=== PATIENT | male | born 1950 | race Caucasian/White ===

== ENCOUNTER 2016-12-25 12:58 | Inpatient (IN) | payer OTHER, MEDICARE ==
[2016-12-25] MEDS ORDERED: Sodium Chloride 0.9% 10 ML Syringe FLUSH PRN (13:05)
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
[2016-12-25] MEDS ORDERED: Diphtheria,Pertussis(Acell),Tetanus Vaccine 0.5 ML SDV IM ONE (13:14)
[2016-12-25] MEDS ORDERED: ceFAZolin 2 GM in Premix Bag 1 BAG IV ONE (13:15)
[2016-12-25] MEDS ORDERED: HYDROmorphone 0.5 MG/0.5 ML Syringe IVPUSH ONE ×2 (13:24→21:22)
[2016-12-25] MEDS ORDERED: Iodine/Sodium Iodide 2% Tincture 30 ML Bottle ONE (13:56)
[2016-12-25] MEDS ORDERED: Ondansetron 4 MG/2 ML SDV ONE ×2 (14:14→16:16)
[2016-12-25] MEDS ORDERED: Propofol 200 MG/20 ML SDV ONE ×4 (14:14→17:01)
[2016-12-25] MEDS ORDERED: Rocuronium 50 MG/5 ML Vial ONE (14:14)
[2016-12-25] MEDS ORDERED: fentaNYL 250 MCG/5 ML SDV ONE (14:15)
[2016-12-25] MEDS ORDERED: Midazolam 1 MG/ML 2 ML SDV ONE ×2 (14:15→15:45)
[2016-12-25] MEDS ORDERED: ceFAZolin 1 GM Vial ONE (14:15)
[2016-12-25] MEDS ORDERED: Bupivacaine 0.25% 30 ML SDV ONE (14:16)
--- NOTE | 2016-12-25 14:17 | CT ---
Head CT Technique: Multiple axial sections through the brain were obtained. Intravenous contrast was not utilized. Findings: Small subdural hematoma is seen along the interhemispheric falx with thickness of about 2.5 mm. Small amount of subarachnoid blood is seen within an interhemispheric sulcus within the frontal region. No other findings of intracranial hemorrhage are seen. Old lacunar infarct is noted within the left basal ganglia. Minimal diminished density is noted within the periventricular white matter compatible with small vessel ischemic demyelination change. No other abnormal parenchymal densities are seen. No midline shift or mass effect is seen. Visualized sinuses are clear. No acute calvarial abnormality is appreciated. Impression: 1. Minimal subdural hematoma along the interhemispheric falx. Minimal amount of subarachnoid blood is seen within a sulcus along the medial frontal lobe on the right side. 2. Mild senescent change is seen. Diagnostic code #5
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
[2016-12-25] MEDS ORDERED: HYDROmorphone 0.5 MG/0.5 ML Syringe IVPUSH PRN ×2 (14:37→16:18)
[2016-12-25] MEDS ORDERED: Acetaminophen/oxyCODONE 325-5 MG Tab PO PRN (14:37)
[2016-12-25] MEDS ORDERED: Ondansetron 4 MG/2 ML SDV IVPUSH PRN ×2 (14:37→16:18)
[2016-12-25] MEDS ORDERED: Ketorolac 15 MG/ML SDV IVPUSH PRN (14:37)
[2016-12-25] MEDS ORDERED: Morphine 15 MG Tab.ER PO SCH (14:45)
[2016-12-25] MEDS ORDERED: Lidocaine 1% with EPINEPHrine 1:100,000 20 ML MDV ONE ×2 (14:53→15:46)
[2016-12-25] MEDS ORDERED: Bupivacaine 0.25%/EPINEPHrine 1:200,000 30 ML SDV ONE (14:53)
[2016-12-25] MEDS: cefTRIAXone 1 GM in Sodium Chloride 0.9% 100 ML IV ONE ×2 (15:10→17:44)
--- NOTE | 2016-12-25 15:19 | CR ---
Right tibia and fibula: Two views of the right tibia and fibula were obtained. Comparison: No previous study. Soft tissue injury is seen distally. Knee prosthesis is seen which appears aligned. No acute fracture or other bony abnormality is seen. Impression: 1. Soft tissue injury distally. 2. No acute bony abnormality is identified on right tibia/fibula study. Diagnostic code #3
[2016-12-25] MEDS ORDERED: Lidocaine 1% 2 ML ONE ×3 (15:39)
[2016-12-25] MEDS ORDERED: Ketamine 500 mg/10 ML MDV ONE (15:51)
[2016-12-25] MEDS ORDERED: Scopolamine 1.5 MG Transdermal Patch TRDERM ONE (16:12)
[2016-12-25] MEDS ORDERED: ePHEDrine 50 MG/ML SDV IVPUSH PRN (16:18)
[2016-12-25] MEDS ORDERED: fentaNYL 100 MCG/2 ML SDV IVPUSH PRN (16:18)
[2016-12-25] MEDS ORDERED: ePHEDrine/Normal Saline 25 MG/5 ML Syringe ONE (16:28)
[2016-12-25] MEDS ORDERED: Phenylephrine/Normal Saline 100 MCG/ML 10 ML Syringe ONE (16:37)
[2016-12-25] MEDS ORDERED: Lactated Ringers 1,000 ML ONE (16:56)
--- NOTE | 2016-12-25 17:33 | PCM.POSTAN ---
POST ANESTHESIA ASSESSMENT - MENTAL STATUS Mental Status: Alert, Oriented (times three, and appropriate to questions.) - VITAL SIGNS Pulse Rate: 79 SaO2: 94 Resp Rate: 14 Blood Pressure: 116/73 Temperature: 36.1 C - RESPIRATORY Respiratory Status: respiratory rate WNL, Airway Patent, O2 Saturation Stable - CARDIOVASCULAR CV Status: Pulse Rate WNL, Blood Pressure Stable - GASTROINTESTINAL GI Status: No Symptoms - POST OP HYDRATION Hydration Status: Adequate & Stable
[2016-12-25] MEDS ORDERED: cefTRIAXone 1 GM AdvVial IV ONE (17:42)
[2016-12-25] MEDS ORDERED: Sodium Chloride 0.9% 100 ML ONE (17:43)
--- NOTE | 2016-12-25 17:54 | PCM48HPAN ---
Post Anesthesia Note - EVALUATION WITHIN 48HRS OF ANESTHETIC Vital Signs in Normal Range: Yes Patient Participated in Evaluation: Yes Respiratory Function Stable: Yes Airway Patent: Yes Cardiovascular Function Stable: Yes Hydration Status Stable: Yes Pain Control Satisfactory: Yes Nausea and Vomiting Control Satisfactory: Yes Mental Status Recovered: Yes
--- NOTE | 2016-12-25 19:55 | CR ---
Left knee: 3 views of the left knee were obtained. Comparison: No previous knee exam. Joint effusion is seen with possible fat fluid level. Calcifications are seen within the suprapatellar pouch presumably due to synovial calcification. Slight chondrocalcinosis is noted. Mild degenerative spurring of the anterior tibial spines is seen. Bony structures are osteopenic. Mild joint space narrowing is noted within the patellofemoral joint. Slight concavity of the lateral tibial plateau is seen and difficult to exclude a fracture. Impression: 1. Possible fat fluid level within the suprapatellar bursa. 2. Difficult to exclude lateral malleolar fracture. CT exam would be helpful to further evaluate. 3. Other degenerative findings as noted above. Diagnostic code #5
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
[2016-12-25] MEDS ORDERED: metFORMIN 500 MG Tab PO ONE (21:45)
[2016-12-25] MEDS: Cephalexin 500 MG Cap PO SCH ×2 (23:21→23:44)
[2016-12-26] MEDS: HYDROmorphone 0.5 MG/0.5 ML Syringe IVPUSH PRN ×2 (00:38→03:46)
[2016-12-26] MEDS: Cephalexin 500 MG Cap PO SCH ×4 (05:45→23:39)
[2016-12-26] MEDS: metFORMIN 500 MG Tab PO SCH ×2 (07:14→18:37)
--- NOTE | 2016-12-26 07:29 | OR ---
DATE OF OPERATION: 12/25/2016 SURGEON: Manoj Hanna MD PREOPERATIVE DIAGNOSIS: Extensive laceration, lateral aspect, right lower extremity, 39 cm in length. POSTOPERATIVE DIAGNOSIS: 1. Extensive laceration, lateral aspect, right lower extremity, 39 cm in length. 2. Extensive muscle laceration anterior perineal muscles along with exposed peroneal nerve of the right lower extremity. ANESTHESIA: Sedation. OPERATION PERFORMED: 1. Irrigation and debridement of extensive laceration, deep tissue and muscle injury, right lower extremity. 2. Repair and closure of laceration, 39 cm, right lower extremity. DESCRIPTION OF PROCEDURE: The patient was taken to the operating room in supine position and was placed under a good heavy sedation. After sedation, the operation proceeded with prepping and draping of the right lower extremity by standard technique for an open laceration. After prepping and draping with the iodine solution, the operation proceeded with thorough irrigation using the Pulsavac in the wound area and immediate note was a gouge type injury with deep tissue muscle damage and penetration in the midportion of the anterior compartment of the muscle region and then also on exposure, found the peroneal nerve to be exposed and free with all covering tissues exposing in the midportion of the laceration. The area of the muscle gouge was thoroughly irrigated with the hematoma and also the skin flap that was present. There was also degloving injury from lateral to medial with the skin being peeled back to the medial side of the calf area. With completion of the surgery, close to 6000 mL of irrigation was used through the surgery. All the area of dirty type tissue was removed. The hematomas that were present were all removed and once that was complete, the muscle injury was reapproximated loosely with 3-0 Vicryl. The peroneal nerve was present and superficial. There was no skin flap area that could cover the nerve itself and it was opted just to bring the skin over the top and the closure began with mattress sutures being spaced intermittently through the length of the laceration. In the central area, there was 1 laceration that was 6 cm in length that was repaired [id number] using 2-0 Prolene. The rest of the skin sutures were placed on the tissue areas to close or reapproximate the skin keeping it loose for drainage. Once the sutures were in place, the laceration repaired. A thorough irrigation was used all through the surgery. The final step was to go ahead and infiltrate wound itself with 1% lidocaine and epinephrine proximally and distally taking care not to go into the area where the skin was apparent and compromised from the compression injury that the patient had on his leg that caused the laceration. The area showed good circulation and the operation then proceeded with a very large David dressing being applied with increased padding over the skin area to keep pressure on the skin for reattachment to the deep fascial tissues. The Duke wraps were then applied after the leg was wrapped in the soft tissues and bandages and the patient was then awakened from his sedation. He tolerated the procedure well, left the operative room in stable condition, good circulation, had positive dorsiflexion of the foot and great toe. ESTIMATED BLOOD LOSS: MMODAL /[id number]
[2016-12-26] MEDS: Acetaminophen/oxyCODONE 325-5 MG Tab PO PRN ×3 (07:33→20:28)
[2016-12-26] MEDS: Lisinopril 20 MG Tab PO SCH (08:00)
[2016-12-26] MEDS: Allopurinol 300 MG Tab PO SCH (08:00)
[2016-12-26] MEDS: PIOGLITAZONE 15 MG PO SCH (08:01)
--- NOTE | 2016-12-26 09:51 | CT ---
Head CT Technique: Multiple axial sections through the brain were obtained. Intravenous contrast was not utilized. Comparison: Previous head CT exam of 12/25/16. Findings: Small subdural hematoma remains along the interhemispheric falx. Minimal subarachnoid hemorrhage within the medial right frontal region remains stable. Minimal subdural hematoma extends along the cerebellar tentorium which also remains stable. No parenchymal hemorrhage is seen. No midline shift or mass effect is seen. Ventricles along with basal cisterns and sulci over the convexities are stable. Minimal diminished density is again seen within the periventricular white matter which is stable. Impression: 1. Small subdural hematoma along the interhemispheric falx and along the cerebellar tentorium. This is stable from prior study. 2. Minimal subarachnoid hemorrhage within the medial right frontal lobe which also remains stable from prior exam. 3. Other portions of the noncontrast head CT study also remain stable. Diagnostic code #3
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
--- NOTE | 2016-12-26 13:48 | MR ---
MRI left knee Technique: Proton fat-suppressed axial; proton fat-suppressed, T1 fat-suppressed inversion recovery and T2 gradient echo coronal; T1, T2 gradient echo and proton fat-suppressed sagittal images were obtained of the left knee. Findings: Edema is identified within the lateral tibial plateau. This is felt compatible with mildly depressed tibial plateau fracture. Subcutaneous edema noted around the knee. Lateral collateral and medial collateral ligament is intact. Cartilage is fairly well-preserved within the knees. Increased signal noted within the mid and posterior horn of the medial meniscus compatible with fairly extensive tear and degeneration. Increased signal noted within the anterior horn of the lateral meniscus most likely degenerative. Anterior and posterior cruciate ligaments are intact. Quadriceps and patellar tendons are intact. Increased signal seen within the patellar tendon felt compatible with stress reaction. Impression: 1. Large joint effusion and popliteal cyst. 2. Bone marrow edema within the lateral tibial plateau felt compatible with mild acute fracture with mild depression of the lateral tibial plateau. 3. Probable tear within the mid and posterior horn of the medial meniscus. Degenerative signal felt to be present within the anterior horn of the lateral meniscus. Diagnostic code #3
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
[2016-12-26] MEDS ORDERED: Acetaminophen 325 MG Tab PO PRN (18:31)
[2016-12-26] MEDS: INSULIN GLARGINE SUBCUT SCH (20:29)
[2016-12-26] MEDS ORDERED: INSULIN GLARGINE SQ SCH (21:00)
[2016-12-27] MEDS: Acetaminophen/oxyCODONE 325-5 MG Tab PO PRN ×3 (04:12→18:43)
[2016-12-27] MEDS: metFORMIN 500 MG Tab PO SCH ×2 (06:33→18:12)
[2016-12-27] MEDS: Cephalexin 500 MG Cap PO SCH ×3 (06:33→18:12)
[2016-12-27] MEDS: PIOGLITAZONE 15 MG PO SCH (07:59)
[2016-12-27] MEDS: Lisinopril 20 MG Tab PO SCH (07:59)
[2016-12-27] MEDS: Allopurinol 300 MG Tab PO SCH (07:59)
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
[2016-12-27] MEDS ORDERED: Magnesium Hydroxide 400 MG/5 ML Susp 30 ML Cup PO ONE (17:59)
[2016-12-27] MEDS: INSULIN GLARGINE SUBCUT SCH (21:17)
[2016-12-28] MEDS: Cephalexin 500 MG Cap PO SCH ×2 (00:19→06:26)
[2016-12-28] MEDS: Acetaminophen/oxyCODONE 325-5 MG Tab PO PRN ×2 (00:19→06:26)
[2016-12-28] MEDS: metFORMIN 500 MG Tab PO SCH (06:26)
[2016-12-28] MEDS: Lisinopril 20 MG Tab PO SCH (08:06)
[2016-12-28] MEDS: Allopurinol 300 MG Tab PO SCH (08:06)
[2016-12-28 08:13] VITALS: BP 129/88
[2016-12-28] MEDS: PIOGLITAZONE 15 MG PO SCH (08:13)
--- NOTE | 2016-12-28 10:00 | PCM.PN ---
- General Info Date of Service: 12/28/16 Admission Dx/Problem (Free Text): acute trauma multiple contusions abrasions, subdural hematoma, left tibial plateau fx, major rt lower leg laceration,soft tissue injury Hospitalist service consulted for medical management of DM. He is doing well, Lt knee is in knee brace, rt lower leg is with dressing in place. No complaints or concerns this morning. Plans for DC to [facility] Functional Status: Reports: Pain Controlled, Tolerating Diet, Urinating. Denies : New Symptoms - Review of Systems General: Reports: Other (unable to bare weight ). Denies: Fever HEENT: Reports: No Symptoms Pulmonary: Reports: No Symptoms. Denies: Shortness of Breath, Cough Cardiovascular: Reports: No Symptoms. Denies: Chest Pain, Palpitations, Dyspnea on Exertion Gastrointestinal: Reports: No Symptoms Genitourinary: Reports: No Symptoms Musculoskeletal: Reports: Leg Pain Neurological: Reports: No Symptoms Psychiatric: Reports: No Symptoms - Patient Data Vitals - Most Recent: Last Vital Signs Temp 98.4 F 12/28/16 04:50 Pulse 69 12/28/16 04:50 Resp 14 12/28/16 04:50 BP 129/88 12/28/16 08:06 Pulse Ox 94 L 12/28/16 04:50 Weight - Most Recent: 330 lb 3.2 oz I&O - Last 24 Hours: Intake & Output 12/27/16 12/28/16 12/28/16 22:59 06:59 14:59 Intake Total 440 300 Output Total 1450 950 Balance -1010 -650 Lab Results Last 24 Hours: Laboratory Results - last 24 hr 12/27/16 12/28/16 Range/Units 17:32 06:25 POC Glucose 123 H 105 (80-115) mg/dL Med Orders - Current: Current Medications Acetaminophen (Tylenol) 650 mg PO Q4H PRN PRN Reason: Fever Last Admin: 12/26/16 18:36 Dose: 650 mg Allopurinol (Zyloprim) 300 mg PO DAILY ESTHELA Last Admin: 12/28/16 08:06 Dose: 300 mg Cephalexin (Keflex) 500 mg PO Q6HR [facility]HELA Last Admin: 12/28/16 06:26 Dose: 500 mg Hydromorphone HCl (Dilaudid) 0.5 mg IVPUSH Q2H PRN PRN Reason: Pain Last Admin: 12/26/16 03:46 Dose: 0.5 mg Lisinopril (Prinivil) 40 mg PO DAILY [facility] Last Admin: 12/28/16 08:06 Dose: 40 mg Metformin HCl (Glucophage) 1,000 mg PO BIDMEALS [facility] Last Admin: 12/28/16 06:26 Dose: 1,000 mg Ondansetron HCl (Zofran) 4 mg IVPUSH Q4H PRN PRN Reason: Nausea/Vomiting Oxycodone/Acetaminophen (Percocet 325-5 Mg) 1 tab PO Q6H PRN PRN Reason: Pain Last Admin: 12/28/16 06:26 Dose: 1 tab Pioglitazone 15 Mg 0 each PO DAILY [facility] Last Admin: 12/28/16 08:13 Dose: Not Given Basaglar (Insulin Glargine,Hum.Rec. Anlog 80 Unit)Own Med 0 each SUBCUT BEDTIME [facility] Last Admin: 12/27/16 21:17 Dose: 80 each Sodium Chloride (Saline Flush) 10 ml FLUSH ASDIRECTED PRN PRN Reason: Keep Vein Open Last Admin: 12/25/16 13:38 Dose: 10 ml Discontinued Medications Bupivacaine HCl (Marcaine 0.25%) Confirm Administered Dose 30 ml .ROUTE .STK- MED ONE Stop: 12/25/16 14:17 Bupivacaine HCl/Epinephrine Bitart (Marcaine 0.25%/Epinephrine 1:200,000) Confirm Administered Dose 60 ml .ROUTE .STK-MED ONE Stop: 12/25/16 14:54 Last Admin: 12/25/16 15:58 Dose: 60 ml Cefazolin Sodium (Ancef) Confirm Administered Dose 2 gm .ROUTE .STK-MED ONE Stop: 12/25/16 14:16 Ceftriaxone Sodium (Rocephin) Confirm Administered Dose 1 gm IV .STK-MED ONE Stop: 12/25/16 17:43 Last Admin: 12/25/16 22:31 Dose: Not Given Diphtheria/Tetanus/Acell Pertussis (Adacel) 0.5 ml IM .ONCE ONE Stop: 12/25/16 13:15 Last Admin: 12/25/16 13:39 Dose: 0.5 ml Ephedrine Sulfate (Ephedrine Sulfate) 5 mg IVPUSH ASDIRECTED PRN PRN Reason: Hypotension Ephedrine Sulfate (Ephedrine In Ns) Confirm Administered Dose 25 mg .ROUTE .STK- MED ONE Stop: 12/25/16 16:29 Fentanyl (Sublimaze) Confirm Administered Dose 250 mcg .ROUTE .STK-MED ONE Stop: 12/25/16 14:16 Fentanyl (Sublimaze) 50 mcg IVPUSH Q5M PRN PRN Reason: Pain Stop: 12/25/16 16:34 Hydromorphone HCl (Dilaudid) 0.5 mg IVPUSH ONETIME ONE Stop: 12/25/16 13:25 Last Admin: 12/25/16 13:35 Dose: 0.5 mg Hydromorphone HCl (Dilaudid) 0.5 mg IVPUSH Q2H PRN PRN Reason: Pain (severe 7-10) Last Admin: 12/25/16 21:26 Dose: 0.5 mg Hydromorphone HCl (Dilaudid) 0.5 mg IVPUSH Q15M PRN PRN Reason: severe pain Stop: 12/25/16 16:34 Hydromorphone HCl (Dilaudid) 0.5 mg IVPUSH ONETIME ONE Stop: 12/25/16 21:23 Last Admin: 12/25/16 22:31 Dose: Not Given Cefazolin Sodium/Dextrose 2 gm (/ Premix) 50 mls @ 100 mls/hr IV ONETIME ONE Stop: 12/25/16 13:44 Last Admin: 12/25/16 13:37 Dose: 100 mls/hr Ceftriaxone Sodium 1 gm/ (Sodium Chloride) 100 mls @ 200 mls/hr IV ONETIME ONE Stop: 12/25/16 15:06 Last Admin: 12/25/16 17:44 Dose: 200 mls/hr Lidocaine HCl (Xylocaine-Mpf 1%) Confirm Administered Dose 2 mls @ as directed .ROUTE .STK-MED ONE Stop: 12/25/16 15:40 Lidocaine HCl (Xylocaine-Mpf 1%) Confirm Administered Dose 2 mls @ as directed .ROUTE .STK-MED ONE Stop: 12/25/16 15:40 Lidocaine HCl (Xylocaine-Mpf 1%) Confirm Administered Dose 2 mls @ as directed .ROUTE .STK-MED ONE Stop: 12/25/16 15:40 Lactated Ringer's (Ringers, Lactated) Confirm Administered Dose 1,000 mls @ as directed .ROUTE .STK-MED ONE Stop: 12/25/16 16:57 Sodium Chloride (Normal Saline) Confirm Administered Dose 100 mls @ as directed .ROUTE .STK-MED ONE Stop: 12/25/16 17:44 Last Admin: 12/25/16 22:31 Dose: Not Given Iodine (Iodine 2% Mild Tincture) Confirm Administered Dose 30 ml .ROUTE .STK- MED ONE Stop: 12/25/16 13:57 Ketamine HCl (Ketalar) Confirm Administered Dose 500 mg .ROUTE .STK-MED ONE Stop: 12/25/16 15:52 Ketorolac Tromethamine (Toradol) 15 mg IVPUSH Q6H PRN PRN Reason: Pain (severe 7-10) Lidocaine/Epinephrine (Xylocaine 1% With Epinephrine 1:100,000) Confirm Administered Dose 40 ml .ROUTE .STK-MED ONE Stop: 12/25/16 14:54 Last Admin: 12/25/16 16:36 Dose: 40 ml Lidocaine/Epinephrine (Xylocaine 1% With Epinephrine 1:100,000) Confirm Administered Dose 20 ml .ROUTE .STK-MED ONE Stop: 12/25/16 15:47 Magnesium Hydroxide (Milk Of Magnesia) 30 ml PO ONETIME ONE Stop: 12/27/16 18:00 Last Admin: 12/27/16 18:13 Dose: 30 ml Metformin HCl (Glucophage) 1,000 mg PO ONETIME ONE Stop: 12/25/16 21:46 Last Admin: 12/25/16 23:21 Dose: 1,000 mg Midazolam HCl (Versed 1 Mg/Ml) Confirm Administered Dose 2 mg .ROUTE .STK-MED ONE Stop: 12/25/16 14:16 Midazolam HCl (Versed 1 Mg/Ml) Confirm Administered Dose 2 mg .ROUTE .STK-MED ONE Stop: 12/25/16 15:46 Morphine Sulfate (Ms Contin) 15 mg PO ONETIME [facility] Basaglar (Insulin Glargine,Hum.Rec. Anlog 80 Unit)Own Med 80 unit SQ BEDTIME [facility] Last Admin: 12/26/16 00:47 Dose: 80 unit Ondansetron HCl (Zofran) Confirm Administered Dose 4 mg .ROUTE .STK-MED ONE Stop: 12/25/16 14:15 Ondansetron HCl (Zofran) Confirm Administered Dose 4 mg .ROUTE .STK-MED ONE Stop: 12/25/16 16:17 Ondansetron HCl (Zofran) 4 mg IVPUSH ONETIME PRN PRN Reason: Nausea/Vomiting Oxycodone/Acetaminophen (Percocet 325-5 Mg) 1 - 2 tab PO Q4H PRN PRN Reason: Pain (severe 7-10) Phenylephrine HCl (Phenylephrine In Ns 100 Mcg/Ml) Confirm Administered Dose 1 mg .ROUTE .STK-MED ONE Stop: 12/25/16 16:38 Propofol (Diprivan 20 Ml) Confirm Administered Dose 200 mg .ROUTE .STK-MED ONE Stop: 12/25/16 14:15 Propofol (Diprivan 20 Ml) Confirm Administered Dose 200 mg .ROUTE .STK-MED ONE Stop: 12/25/16 15:54 Propofol (Diprivan 20 Ml) Confirm Administered Dose 400 mg .ROUTE .STK-MED ONE Stop: 12/25/16 16:16 Propofol (Diprivan 20 Ml) Confirm Administered Dose 800 mg .ROUTE .STK-MED ONE Stop: 12/25/16 17:02 Rocuronium [place] (Zemuron) Confirm Administered Dose 50 mg .ROUTE .STK-MED ONE Stop: 12/25/16 14:15 Scopolamine (Transderm-Scop) 1.5 mg TRDERM ONETIME ONE Stop: 12/25/16 16:13 Last Admin: 12/25/16 22:31 Dose: Not Given - Exam Quality Assessment: DVT Prophylaxis General: Alert, Oriented, Cooperative, No Acute Distress HEENT: Pupils Equal, Pupils Reactive, EOMI, Mucous Membr. Moist/Estero Neck: Supple Lungs: Normal Respiratory Effort Cardiovascular: Regular Rate, Regular Rhythm GI/Abdominal Exam: Normal Bowel Sounds, Soft (Male) Exam: Deferred Extremities: Other (postop dressing/splint to right lower extremity, brace in place to left knee. CMS + and = bilat) Neurological: No New Focal Deficit Psy/Mental Status: Alert, Normal Affect, Normal Mood - Problem List & Annotations (1) Fall SNOMED Code(s): 4212690, 463762051 Code(s): W19.XXXA - UNSPECIFIED FALL, INITIAL ENCOUNTER Status: Acute Current Visit: Yes Qualifiers: Encounter type: initial encounter Qualified Code(s): W19.XXXA - Unspecified fall, initial encounter (2) Laceration of leg, right SNOMED Code(s): 961790636 Code(s): S81.811A - LACERATION W/O FOREIGN BODY, RIGHT LOWER LEG, INIT ENCNTR Status: Acute Priority: High Current Visit: Yes Qualifiers: Encounter type: initial encounter Qualified Code(s): S81.811A - Laceration without foreign body, right lower leg, initial encounter (3) Tibial plateau fracture, left SNOMED Code(s): 545931878 Code(s): S82.142A - DISPLACED BICONDYLAR FRACTURE OF LEFT TIBIA, INIT Status: Acute Priority: High Current Visit: Yes (4) Subdural hematoma SNOMED Code(s): 72584167 Code(s): I62.00 - NONTRAUMATIC SUBDURAL HEMORRHAGE, UNSPECIFIED Status: Acute Priority: High Current Visit: Yes (5) Abrasion of occiput SNOMED Code(s): 446798564 Code(s): S00.01XA - ABRASION OF SCALP, INITIAL ENCOUNTER Status: Resolved Current Visit: Yes Qualifiers: Encounter type: initial encounter Qualified Code(s): S00.01XA - Abrasion of scalp, initial encounter (6) Hypertension SNOMED Code(s): 00736299 Code(s): I10 - ESSENTIAL (PRIMARY) HYPERTENSION Status: Chronic Current Visit: Yes (7) Diabetes mellitus SNOMED Code(s): 91696700 Code(s): E11.9 - TYPE 2 DIABETES MELLITUS WITHOUT COMPLICATIONS Status: Chronic Current Visit: Yes - Problem List Review Problem List Initiated/Reviewed/Updated: Yes - My Orders Last 24 Hours: My Active Orders 12/27/16 09:53 Ready for Discharge [RC] PER UNIT ROUTINE 12/28/16 06:31 Ready for Discharge [RC] PER UNIT ROUTINE - Assessment Assessment:: The MRI shows a meniscus tear and a tibial plateau fracture. The repeat CT shows no changes from prior. - Plan Plan:: I/P: Subdural with repeat imaging stable DM- stable on home meds HTN- stable on home meds Orthopedic injuries-- per Primary Orthopedist, Dr. Hanna -surgical dressing to rt lower leg CDI -Tibial plateau fx, nonoperative, with brace in place -F/up with ortho as directed/as scheduled Plans for DC to [facility] today Continue on all usual home meds
== END 2016-12-28 09:05 | DRG 579 ==
LOC: JD.ED 12:58 → JD.SDS 14:07 → JD.ICU 22:04 → OBSVTOIN 12-26 08:16 → JD.MS 12-26 12:18
PROVIDERS: ADMIT Emergency Medicine; ATTEND Emergency Medicine
PROC: 0KQS3ZZ Repair Right Lower Leg Muscle, Percutaneous Approach (ICD-10-PCS; principal; 2016-12-26)
DX: S81.811A Laceration without foreign body, right lower leg, initial encounter (principal); I62.00 Nontraumatic subdural hemorrhage, unspecified; S82.142A Displaced bicondylar fracture of left tibia, initial encounter for closed fracture; V98.8XXA Other specified transport accidents, initial encounter; Y92.838 Other recreation area as the place of occurrence of the external cause; S00.01XA Abrasion of scalp, initial encounter; I10 Essential (primary) hypertension; E11.9 Type 2 diabetes mellitus without complications; Z79.84 Long term (current) use of oral hypoglycemic drugs; Z79.4 Long term (current) use of insulin; S83.207A Unspecified tear of unspecified meniscus, current injury, left knee, initial encounter; E78.5 Hyperlipidemia, unspecified; Z96.651 Presence of right artificial knee joint; T14.8 Other injury of unspecified body region; W19.XXXA Unspecified fall, initial encounter
CPT/HCPCS: 00400; 36415; 70450; 70450-26; 73562-26-LT; 73562-LT; 73590-26-RT; 73590-RT; 73721-26-LT; 73721-LT; 80053; 82550; 82962; 83690; 85025; 90471; 90715; 93005; 96365; 96367; 96375; 96376; 97110-GP; 97161-GP; 97530-GP; 99284; 99285; 99285-25; A9270-GY; G0378; J0690; J0696; J1170; J2250; J2405; J2704; J3010; J3490; J7030; J7050; J7120